=== PATIENT | female | born 1995 | race Caucasian/White ===

== ENCOUNTER 2020-10-20 06:21 | Day surgery (SDC) | payer OTHER ==
[2020-10-07 11:39] LABS: Absolute Lymphocytes (CBC) 2.2 K/uL (0.7-4.9); Basophils % 0.9 % (0-1.3); Hematocrit 34.9 % (36.0-45.0); MPV 7.7 fL (7.6-11.3); RBC Red Blood Cell Count 4.06 M/uL (3.86-4.86)
[2020-10-07 11:49] LABS: ALT/SGPT 54 U/L (12-78); AST/SGOT 28 U/L (15-37); Albumin 3.5 g/dL (3.4-5.0); Alkaline Phosphatase 85 U/L (45-117); Amylase 47 U/L (25-115); BUN Blood Urea Nitrogen 14 mg/dL (7-18); Bicarbonate 27 mmol/L (21-32); Bilirubin Direct < 0.1 mg/dL (0-0.2); Bilirubin Total 0.2 mg/dL (0.2-1.0); Glucose Level 90 mg/dL (74-106); Lipase 98 U/L (73-393); Potassium 4.4 mmol/L (3.5-5.1); Protein, Total 7.6 g/dL (6.4-8.2); Sodium Level 143 mmol/L (136-145)
[2020-10-20 06:34] LABS: Specific Gravity 1.025 (1.005-1.030)
[2020-10-20] MEDS ORDERED: Ringers Lactate 1,000 ML IV ONE (07:12)
[2020-10-20] MEDS ORDERED: CEFOXITIN/SWI 1gm 1 GM/10 ML SYR ONE (07:13)
[2020-10-20] MEDS ORDERED: BUPIVACAINE 0.5% PF 10 ML VIAL ONE (07:30)
[2020-10-20] MEDS ORDERED: propofoL 200 MG/20 ML VIAL IV ONE (07:38)
[2020-10-20] MEDS ORDERED: LIDOCAINE 1% MPF 5 ML VIAL ONE (07:38)
[2020-10-20] MEDS ORDERED: FENTANYL CITR 100 MCG/2 ML ONE ×2 (07:38→08:43)
[2020-10-20] MEDS ORDERED: ROCURONIUM 50 MG/5 ML VIAL IV ONE (07:38)
[2020-10-20] MEDS ORDERED: MIDAZOLAM HCL 2 MG/2 ML INJ ONE (07:38)
--- NOTE | 2020-10-20 08:21 | P.BOP ---
Preoperative diagnosis: symptomatic cholelithiasis Postoperative diagnosis: same Primary procedure: Laparoscopic cholecystectomy Maintenance Painter Apprentice: ARACELIS BLUE (DIRECTOR OF HOME HEALTH SERVICES) Estimated blood loss: <10cc Specimen: gb Findings: as above Anesthesia: General Complications: None Transferred to: Recovery Room Condition: Good
[2020-10-20] MEDS ORDERED: ONDANSETRON 4 MG/2 ML VIAL ONE (08:25)
[2020-10-20] MEDS ORDERED: KETOROLAC 30 MG/ML INJ ONE (08:25)
[2020-10-20] MEDS ORDERED: dexAMETHasone 10 MG/ML VIAL ONE (08:25)
[2020-10-20] MEDS ORDERED: GLYCOPYRROLATE 0.2 MG/ML SYR ONE (08:27)
[2020-10-20] MEDS ORDERED: NEOSTIGMINE 1 MG/ML -5 ML ONE (08:31)
[2020-10-20 09:30] VITALS: BP 114/66; TEMP 97; O2SAT 97
[2020-10-20] MEDS ORDERED: CODEINE 30MG/APAP 300MG TAB ONE (10:05)
--- NOTE | 2020-10-25 11:58 | OP ---
Date of Procedure: 10/21/2020 Surgeon: Greg Salazar MD Panel Machine Setter: Sahara Schroeder. Preoperative Diagnosis: Symptomatic cholelithiasis. Postoperative Diagnosis: Symptomatic cholelithiasis. Procedure: Laparoscopic cholecystectomy. Estimated Blood Loss: Less than 10 mL. Specimen: Gallbladder. Anesthesia: General plus local. Indication: This is the case of a 24-year-old patient, who comes to us with above diagnosis. Fully explained the benefits, alternatives, and risks of laparoscopic possible open cholecystectomy, which include, but not limited to infection, bleeding, damage to adjacent structures, anesthesia complicati on, choledocholithiasis, bile leak, pancreatitis, UT, and even . She also understands this may not relieve any symptoms. She may need more than one surgical intervention. She understood, signed a consent. Procedure In Detail: The patient was brought to the operating room and placed in supine position. A nesthesia was done without complication. Abdominal area was prepped and draped in usual sterile fash ion. Marcaine 0.5% was injected for local anesthetic followed by sharp incision of the skin in the i nfraumbilical region. The incision was carried down to fascia, which was opened under direct vision. Peritoneum was encountered, opened under direct vision. Vicryl #1 placed inside the fascia. Hasso n trocar was carefully introduced. Pneumoperitoneum was obtained. I placed 3 more trocars, 5 mm eac h one of them, 1 in epigastric area and 1 in the right upper quadrant using direct visualization. Af ter that, I placed a grasper in the fundus of the gallbladder and another grasper in the infundibulum retracting the gallbladder in the inferolateral fashion exposing the triangle of Calot and obtaining critical view. Cystic duct and cystic artery were clearly isolated, freed circumferentially and a c onnection between those and the gallbladder was clearly identified. I proceeded to ligate those by u sing at least 3 clips proximal, 1 clip distal, ligation in middle. Same was done with the cystic art willie. No bile leak, no bleeding. The gallbladder was removed from liver using Bovie cauterizer and r emoved from abdominal cavity using EndoCatch through the umbilical incision. The area was inspected once again. No bile leak. No bleeding. Gallbladder fossa was intact. Clips were intact. At that moment, I proceeded to remove the trocars under direct vision. Deflated pneumoperitoneum, closed the fascia with #1 Vicryl. Irrigated the subcutaneous tissue, closed that with 3-0 chromic and skin in a subcuticular fashion with 3-0 chromic and Steri-Strips on top. Sponge count and instrument counts correct. The patient tolerated the procedure well. The patient was sent to recovery in stable condi tion. ANTOLIN/RAMON Voice ID: [id number] Report ID: [id number]
--- NOTE | 2020-10-25 11:58 | OP ---
Surgeon: Greg Salazar MD Diagnosis: Symptomatic cholelithiasis. Procedure: Laparoscopic cholecystectomy. Disposition: Home. Activity: As tolerated. No heavy lifting. Plan: Follow up in my office in 1 week. Call for appointment at [phone]. Keep area dry for 48 jenna rs, then may shower. Keep Steri-Strip intact. Medications: See orders. ANTOLIN/RAMON Voice ID: [id number] Report ID: [id number]
== END 2020-10-20 10:15 | disposition home or self-care (01) ==
LOC: OR 06:21
PROVIDERS: ATTEND Surgery
PROC: 0FT44ZZ Resection of Gallbladder, Percutaneous Endoscopic Approach (ICD-10-PCS; principal; 2020-10-20 07:30)
DX: K80.10 Calculus of gallbladder with chronic cholecystitis without obstruction (principal); Z20.822 Contact with and (suspected) exposure to COVID-19
CPT/HCPCS: 85025; 80048; 36415; 82150; 81025; 80076; 88304; 83690; 47562; U0002; U0003; J2704; J2250; J3010 ×2; J1100; J2710; J7120; J2405